=== PATIENT | male | born 2000 | race American Indian/Alaskan Native ===

== ENCOUNTER 2021-05-14 10:23 | Emergency (ER) | payer SELFPAY ==
[2021-05-14 10:31] VITALS: BP 149/69
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
[2021-05-14] MEDS ORDERED: LIDOCAINE-MPF (1%) 10 MG/1 ML VIAL 5 ML INFILTRATI SCH (12:00)
== END 2021-05-14 11:21 | disposition home or self-care (01) ==
LOC: ED 10:23
DX: Z20.2 Contact with and (suspected) exposure to infections with a predominantly sexual mode of transmission (principal); R36.9 Urethral discharge, unspecified; R30.0 Dysuria
CPT/HCPCS: 96372; 99281; J0696